=== PATIENT | female | born 2000 | race Two or more races ===

== ENCOUNTER 2024-08-28 04:50 | Emergency (ER) | payer MEDICAID, SELFPAY ==
[2024-08-28 04:51] VITALS: BMI 19.1
[2024-08-28 04:58] VITALS: BP 112/73; PULSE 95; RESP 16; TEMP 36.8; O2SAT 96
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
--- NOTE | 2024-08-28 05:42 | PC.NURSE ---
[facility] with pt
--- NOTE | 2024-08-28 08:14 | PC.NURSE ---
CALL PT FROM [facility]OB[facility] AND OUTSIDE NO ANSWER
--- NOTE | 2024-08-28 08:26 | PC.NURSE ---
CALL PT FROM [facility]OB[facility] AND OUTSIDE NO ANSWER
== END 2024-08-28 09:23 | disposition left against medical advice (07) ==
PROVIDERS: Emergency Provider Emergency Medicine
DX: M79.642 Pain in left hand (principal); Z53.29 Procedure and treatment not carried out because of patient's decision for other reasons
CPT/HCPCS: 73130; 99281

== ENCOUNTER 2024-10-05 19:05 | Emergency (ER) | payer MEDICAID, SELFPAY ==
[2024-10-05 19:42] VITALS: BP 109/76; PULSE 90; RESP 18; TEMP 36.9; O2SAT 97; BMI 19.1
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
[2024-10-05 22:41] VITALS: RESP 18
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
== END 2024-10-05 22:43 | disposition home or self-care (01) ==
PROVIDERS: Emergency Provider Emergency Medicine
DX: S09.90XA Unspecified injury of head, initial encounter (principal); S29.9XXA Unspecified injury of thorax, initial encounter; V89.2XXA Person injured in unspecified motor-vehicle accident, traffic, initial encounter
CPT/HCPCS: 70450; 71045; 99284